=== PATIENT | male | born 1985 | race Caucasian/White ===

== ENCOUNTER → 2019-08-13 10:41 | Outpatient (CLI) | payer SELFPAY ==
--- NOTE | 2019-08-13 10:45 | MRI_ITS ---
STUDY: MRI LEFT ANKLE WITHOUT CONTRAST REASON FOR EXAM: Medial/plantar pain for one year. TECHNIQUE: Standardized fat and water weighted pulse sequences were obtained in all 3 orthogonal planes. COMPARISON: None. FINDINGS: There is mild edema in the plantar heel pad. There is a very small volume of fluid in the submalleolar posterior tibialis and flexor digitorum longus tendon sheaths (T2 axial images 15, 16). The posterior tibialis and flexor digitorum longus tendons are morphologically normal. There is fluid in the flexor hallucis longus tendon proximal and distal to the sustentaculum diane (inversion recovery sagittal images 7, 8). Normal peroneus longus and brevis tendons. Normal tibialis anterior tendon. Normal extensor hallucis longus tendon. Normal extensor digitorum longus tendons. Normal Achilles tendon and teno-osseous insertion. There is mild edema in the central cord of the plantar fascia at the calcaneal origin (inversion recovery sagittal image 8). There is no calcaneal stress fracture. There is a strain of the flexor digitorum brevis muscle (inversion recovery sagittal images 7, 8). Normal distal tibiofibular syndesmotic ligamentous complex. Normal lateral ligamentous complex. Normal subtalar ligaments and sinus tarsi. There is a small cyst in the superior body of the calcaneus. Normal deltoid ligamentous complexes. Normal plantar calcaneonavicular (spring) ligament. Normal tibiotalar articulation. Normal talar dome. There is a small posterior subtalar joint effusion (inversion recovery sagittal images 11-13). Normal talonavicular articulation. Normal calcaneocuboid articulation. Normal navicular-cuneiform articulations. MRI/Lower Ext Joint Only (Routine) IMPRESSION: Mild plantar fasciitis. Strain of the flexor digitorum brevis muscle. Very mild posterior tibialis and flexor digitorum longus tenosynovitis. Flexor hallucis longus tenosynovitis. Small posterior subtalar joint effusion. Electronically Signed: Francis Chisholm MD at 12:02 EST Tel , Service support ,
== END ==
PROVIDERS: Family Provider Family Medicine; PCP Family Medicine; Referring Provider Podiatrist; Visit Provider Podiatrist
DX: M72.2 Plantar fascial fibromatosis (principal)
CPT/HCPCS: 73721